=== PATIENT | male | born 1935 | race Two or more races ===

== ENCOUNTER 2020-02-26 11:35 | Outpatient (CLI) | payer OTHER ==
[~2020-02-26 11:35] MED LIST: CIPRO500 MG PO; PYRIDIUM100 M1 PO; ULTRACET PO
== END 2020-02-26 11:44 | disposition home or self-care (01) ==
LOC: SONOGRAMA 11:35
PROVIDERS: ATTEND Pathology Anatomic Pathology & Clinical Pathology
DX: E04.1 Nontoxic single thyroid nodule (principal)

== ENCOUNTER 2022-01-02 19:03 | Emergency (ER) | payer OTHER ==
[~2022-01-02] VITALS: Ht 165.1 cm; Wt 72.6 kg
[2022-01-02] MEDS ORDERED: JANUVIA25 MG PO (19:45)
== END 2022-01-02 22:21 | disposition left against medical advice (07) ==
LOC: ER 19:03
DX: R50.9 Fever, unspecified (principal); I10 Essential (primary) hypertension; R60.0 Localized edema; W19.XXXA Unspecified fall, initial encounter; Y93.9 Activity, unspecified; Y92.9 Unspecified place or not applicable; Y99.9 Unspecified external cause status